=== PATIENT | female | born 1975 | race Two or more races ===

== ENCOUNTER 2021-06-14 12:34 | Emergency (ER) | payer SELFPAY ==
[~2021-06-14] VITALS: Ht 154.9 cm; Wt 59.1 kg
--- NOTE | 2021-06-14 13:37 | PHYS DOC ---
General Adult EDM: Chief Complaint: HEADACHE HPI: HPI: Patient is a 46 year old female who presents with 2 days of a right-sided headache. She states she has had these current headaches before but not this bad. 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 She denies only photophobia but no new eye vision change. She does have nausea and has vomited. She was not eating yesterday due to the headache and nausea and daughter states that she was sitting behind the wheel of her car and had a syncopal episode where she hit her head on the steering well. She now also has right neck pain. She denies any focal weakness, numbness or tingling, abdominal pain, chest pain, shortness of air, new vision change, fever that she knows of, cough. Patient rates her pain a 10 out of 10. She has not taken any pain medication for her headache. Review of Systems: Review of Systems: Constitutional: Denies fever or +chills. [] Eyes: Denies change in visual acuity. [] HENT: Denies nasal congestion or sore throat. [] Respiratory: Denies cough or shortness of breath. [] Cardiovascular: Denies chest pain or edema. [] GI: Denies abdominal pain, +nausea, +vomiting, denies bloody stools or diarrhea. [] : Denies dysuria. [] Musculoskeletal: Denies back pain or joint pain. [] Integument: Denies rash. [] Neurologic: + headache, denies focal weakness or sensory changes. +Syncope[] Endocrine: Denies polyuria or polydipsia. [] Lymphatic: Denies swollen glands. [] Psychiatric: Denies depression or anxiety. [] Heart Score: C/O Chest Pain: No Physical Exam: PE: Constitutional: Well developed, well nourished, no acute distress, non-toxic appearance. [] HENT: Normocephalic, atraumatic, bilateral external ears normal, oropharynx moist, no oral exudates, nose normal. [] Eyes: PERRLA, EOMI, conjunctiva normal, no discharge. Photophobia. 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 [] Cardiovascular:Heart rate regular rhythm, no murmur [] Lungs & Thorax: Bilateral breath sounds clear to auscultation [] Abdomen: Bowel sounds normal, soft, no tenderness, no masses, no pulsatile masses. [] Skin: Warm, dry, no erythema, no rash. [] Back: No tenderness, no CVA tenderness. [] Extremities: No tenderness, no cyanosis, no clubbing, ROM intact, no edema. [] Neurologic: Alert and oriented X 3, normal motor function, normal sensory function, no focal deficits noted. [] Psychologic: Affect normal, judgement normal, mood normal. [] EKG: EK and read by Dr. Shaw is sinus rhythm and no STEMI Radiology/Procedures: Radiology/Procedures: [] Impression: [facility] [address] [place], [place] [id number] IMAGING REPORT Signed PATIENT: JAREN MCKEONCOUNT: [id number] : 1975 LOCATION: ER AGE: 46 SEX: F EXAM STATUS: REG ER ORD. PHYSICIAN: LARA PHILLIPS APRN REASON: syncope hit head, neck pain PROCEDURE: CT HEAD AND CERVICAL SPINE WO STUDY: CT head and cervical spine without contrast INDICATION: Syncope. Trauma to the head. Neck pain. COMPARISON: None. TECHNIQUE: Axial CT imaging through the head and cervical spine without the use of intravenous contrast. Sagittal and coronal reformats were obtained. One or more of the following individualized dose reduction techniques were utilized for this examination: 1. Automated exposure control 2. Adjustment of the mA and/or kV according to patient size 3. Use of iterative reconstruction technique. FINDINGS: CT head: No acute intracranial hemorrhage. Davidson-white matter differentiation is maintained. No mass effect, midline shift or hydrocephalus. Possible mild right paramidline scalp contusion, image 16 series 2. No depressed calvarial fracture. CT cervical spine: No acute fracture. Alignment is within normal limits. Disc osteophyte complex or medication at C5-C6 more so than C6-C7 and C4-C5. Uncovertebral joint hypertrophy greatest at C5-C6. No advanced facet arthrosis. There is central canal stenosis at C5-C6 which is incompletely characterized but does not appear to be severe. Osseous neural foraminal stenosis greatest on the right at C5-C6. Unremarkable thyroid and lung apices. No paraspinous hematoma. IMPRESSION: CT head: 1. No depressed calvarial fracture or acute intracranial hemorrhage. CT cervical spine: 1. No acute fracture or traumatic malalignment. 2. Multilevel degenerative changes, as described above, collectively greatest at C5-C6. Electronically signed by: BRYANT MAX MD (06/14/2021 2:43 PM) [facility] DICTATED and SIGNED BY: BRYANT MAX MD DATE: 06/14/21 [id number] 0 [facility] [address] [place] [address] IMAGING REPORT Signed PATIENT: JAREN MCKOENCOUNT: [id number] : 1975 LOCATION: ER AGE: 46 SEX: F EXAM STATUS: PRE ER ORD. PHYSICIAN: LARA PHILLIPS APRN REASON: syncope PROCEDURE: PORTABLE CHEST 1V Study: XR CHEST 1V Indication: Syncope. Comparison: None. Findings: The cardiomediastinal silhouette and chantel are within normal limits. No localized airspace opacity, pleural effusion or pneumothorax. Impression: No acute radiographic abnormality of the chest. Electronically signed by: BRYANT MAX MD (06/14/2021 2:24 PM) [facility] DICTATED and SIGNED BY: BRYANT MAX MD DATE: 06/14/21 [id number] 0 Course & Med Decision Making: Course & Med Decision Making Pertinent Labs and Imaging studies reviewed. (See chart for details) See HPI. Alert and oriented x4. [place]an-speaking only. Produce Assistant is used. Speaks in full complete sentences. Moving all extremities. Nose finger nose intact. Sensations intact. Cap refill less than 2 seconds. No extremity swelling. No focal bony spinal tenderness. She does have full range of motion of her neck. Photophobia. Afebrile. Lungs are clear to all station all lobes. No nuchal rigidity. Patient is given Benadryl, Compazine, Decadron, fentanyl. 1620: Patient states that her pain is still there and it had gotten better but is worse again. Patient is now given Toradol and Sumatriptan. She is currently being PO challenged. 1700. Patient tolerated p.o. challenge. Patient states her pain is a 4 out of 10. She is resting comfortably. Patient will sent home with pain medication [] Dragon Disclaimer: Dragon Disclaimer: This electronic medical record was generated, in whole or in part, using a voice recognition dictation system. NIHSS Stroke Scale NIH Stroke Scale: NIH Stroke Scale Response (Comments) Value Level of Consciousness: 0 Alert/Responsive 0 LOC Questions: 0 Answers both correctly 0 LOC Commands: 0 Performs both tasks 0 Best Gaze: 0 Normal 0 Facial Palsy: 1 Minor paralysis (CHRONIC BLINDNESS IN RIGHT EYE, GLAUCOMA) 1 Motor - Left Arm 0 No drift 0 Motor - Right Arm 0 No drift 0 Motor - Left Leg 0 No drift 0 Motor: Right Leg 0 No drift 0 Limb Ataxia: 0 Absent 0 Sensory: 0 No loss 0 Best Language: 0 Normal 0 Dysathria: 0 Normal 0 Extinction and Inattention: 0 Normal 0 Total 1 Departure Departure Impression: Primary Impression: Headache Qualified Codes: R51.9 - Headache, unspecified Additional Impression: UTI (urinary tract infection) Qualified Codes: N30.00 - Acute cystitis without hematuria Disposition: HOME / SELF CARE / HOMELESS Condition: STABLE Patient Instructions: General Headache Without Cause, Urinary Tract Infection Additional Instructions: Follow-up with primary care provider soon as possible. Drink plenty of fluids to stay hydrated. Take medication as prescribed and with food. If your condition worsens and your headache becomes more severe or you cannot keep down fluids or you begin running a fever or having neck stiffness or numbness and tingling you need to go to the emergency room. Scripts Cephalexin (KEFLEX) 500 Mg Capsule 1 CAP PO TID, #21 CAP Prov: LARA PHILLIPS APRN 06/14/21 Ibuprofen (IBUPROFEN) 600 Mg Tablet 600 MG PO PRN Q6HRS PRN for INFLAMMATION, #20 TAB Prov: LARA PHILLIPS APRN 06/14/21 Ondansetron (ONDANSETRON ODT) 4 Mg Tab.rapdis 1 TAB PO PRN Q6-8HRS, #16 TAB Prov: LARA PHILLIPS APRN 06/14/21 LARA PHILLIPS APRN Jun 14, 2021 13:37
[2021-06-14] MEDS ORDERED: diphenhydrAMINE 50 MG/ML VIAL IVP ONE (13:45)
[2021-06-14] MEDS ORDERED: IV NORMAL SALINE 1000ML BAG 1,000 ML IV ONE (13:45)
[2021-06-14] MEDS ORDERED: fentaNYL PF VIAL 100 MCG/2 ML VIAL IVP ONE (13:45)
[2021-06-14] MEDS ORDERED: DEXAMETHASONE SOD PHOS 20 MG/5 ML VIAL. IV ONE (13:45)
[2021-06-14] MEDS ORDERED: PROCHLORPERAZINE 10 MG/2 ML VIAL. IV ONE (13:45)
[2021-06-14 13:53] LABS: BASO % 0 % (0-3); EOS # 0.2 x10^3/uL (0.0-0.7); EOS % 1 % (0-3); HEMATOCRIT 43.6 % (36.0-47.0); HEMOGLOBIN 14.7 g/dL (12.0-15.5); LYMPH # 2.9 x10^3/uL (1.0-4.8); LYMPH % 20 % (24-48); MEAN CORPUSCULAR HEMOGLOBIN 28 pg (25-35); MEAN CORPUSCULAR HGB CONC 34 g/dL (31-37); MEAN CORPUSCULAR VOLUME 84 fL (79-100); MONO # 0.7 x10^3/uL (0.0-1.1); MONO % 5 % (0-9); NEUT # 10.6 x10^3/uL (1.8-7.7); NEUT % 74 % (31-73); PLATELET COUNT 381 x10^3/uL (140-400); RED BLOOD COUNT 5.21 x10^6/uL (3.50-5.40); RED CELL DISTRIBUTION WIDTH 14.1 % (11.5-14.5); WHITE BLOOD COUNT 14.4 x10^3/uL (4.0-11.0)
[2021-06-14 14:06] LABS: CALCIUM 9.4 mg/dL (8.5-10.1); CREATININE 0.8 mg/dL (0.6-1.0); GFR 76.6; POTASSIUM 3.7 mmol/L (3.5-5.1)
[2021-06-14 14:12] LABS: ALBUMIN 3.8 g/dL (3.4-5.0); ALBUMIN/GLOBULIN RATIO 0.7 (1.0-1.7); MAGNESIUM 2.2 mg/dL (1.8-2.4); TOTAL BILIRUBIN 0.5 mg/dL (0.2-1.0)
--- NOTE | 2021-06-14 14:26 | RAD ---
Study: XR CHEST 1V Indication: Syncope. Comparison: None. Findings: The cardiomediastinal silhouette and chantel are within normal limits. No localized airspace opacity, pl eural effusion or pneumothorax. Impression: No acute radiographic abnormality of the chest. Electronically signed by: BRYANT MAX MD (06/14/2021 2:24 PM) [facility]
--- NOTE | 2021-06-14 14:46 | RAD ---
STUDY: CT head and cervical spine without contrast INDICATION: Syncope. Trauma to the head. Neck pain. COMPARISON: None. TECHNIQUE: Axial CT imaging through the head and cervical spine without the use of intravenous contra st. Sagittal and coronal reformats were obtained. One or more of the following individualized dose reduction techniques were utilized for this examinat ion: 1. Automated exposure control 2. Adjustment of the mA and/or kV according to patient size 3. Use of iterative reconstruction technique. FINDINGS: CT head: No acute intracranial hemorrhage. Davidson-white matter differentiation is maintained. No mass effect, mi dline shift or hydrocephalus. Possible mild right paramidline scalp contusion, image 16 series 2. No depressed calvarial fracture. CT cervical spine: No acute fracture. Alignment is within normal limits. Disc osteophyte complex or medication at C5-C6 more so than C6-C7 and C4-C5. Uncovertebral joint hype rtrophy greatest at C5-C6. No advanced facet arthrosis. There is central canal stenosis at C5-C6 whic h is incompletely characterized but does not appear to be severe. Osseous neural foraminal stenosis g reatest on the right at C5-C6. Unremarkable thyroid and lung apices. No paraspinous hematoma. IMPRESSION: CT head: 1. No depressed calvarial fracture or acute intracranial hemorrhage. CT cervical spine: 1. No acute fracture or traumatic malalignment. 2. Multilevel degenerative changes, as described above, collectively greatest at C5-C6. Electronically signed by: BRYANT MAX MD (06/14/2021 2:43 PM) [facility]
--- NOTE | 2021-06-14 15:01 | EKG ---
[facility] [address] [place] [address] Test Date: 2021-06-14 Test Time: 13:50:17 Pat Name: JACKIE MCKEON Department: Room: Gender: F Broke Beater: : 1975 Requested By: LARA PHILLIPS Order Number: [id number] Reading MD: Malachi Valencia MD Measurements Intervals [place] Rate: 79 P: 31 IN: 142 QRS: 31 QRSD: 82 T: 39 QT: 368 QTc: 423 Interpretive Statements SINUS RHYTHM NON-SPECIFIC ST/T CHANGES Electronically Signed On 06-15-2021 13:27:32 [employer]ORY PROFESSOR by Malachi Valencia MD
[2021-06-14 15:57] LABS: BILIRUBIN,URINE NEGATIVE (NEG); CLARITY,URINE CLOUDY; COLOR,URINE YELLOW; NITRITE,URINE NEGATIVE (NEG); PROTEIN,URINE NEGATIVE (NEG-TRACE)
[2021-06-14 16:03] LABS: BARBITURATES NEG (NEG); BENZODIAZEPINES NEG (NEG); CANNABINOIDS NEG (NEG); COCAINE NEG (NEG); METHADONE NEG (NEG); OPIATES NEG (NEG); PHENCYCLIDINE NEG (NEG)
[2021-06-14 16:06] LABS: BACTERIA,URINE MANY /HPF (0-FEW); RBC,URINE OCC /HPF (0-2)
[2021-06-14 16:07] LABS: AMPHETAMINE/METHAMPHETAMINE NEG (NEG)
[2021-06-14] MEDS ORDERED: KETOROLAC 30 MG/ML VIAL. IVP ONE (16:30)
[2021-06-14] MEDS ORDERED: cefTRIAXone IV Push 1 GM VIAL. IVP ONE (16:30)
[2021-06-14] MEDS ORDERED: SUMAtriptan SUCC 6 MG/0.5 ML VIAL. SQ ONE (16:30)
[2021-06-14] MEDS ORDERED: CEPH500C PO (17:22)
[2021-06-14] MEDS ORDERED: ONDA4TAB12 PO (17:22)
[2021-06-14] MEDS ORDERED: IBUP-1007 PO (17:22)
[2021-06-14 17:48] VITALS: BP 122/67
--- NOTE | 2021-06-15 15:12 | NUR ---
IP: Informed pt of negative covid test. Pt verbalized understanding.
== END 2021-06-14 18:30 | disposition home or self-care (01) ==
LOC: ER 12:34
DX: R51.9 Headache, unspecified (principal); Z20.822 Contact with and (suspected) exposure to COVID-19; N30.00 Acute cystitis without hematuria; G89.11 Acute pain due to trauma; M54.2 Cervicalgia; R55 Syncope and collapse; H54.61 Unqualified visual loss, right eye, normal vision left eye; M48.02 Spinal stenosis, cervical region; W22.8XXA Striking against or struck by other objects, initial encounter; Y93.89 Activity, other specified; Y92.89 Other specified places as the place of occurrence of the external cause; Y99.8 Other external cause status
CPT/HCPCS: 36415; 70450; 71045; 72125; 80053; 80307; 81001; 83735; 83880; 84484; 85025; 87086; 87426; 93005; 96361; 96372; 96374; 96375; 99285; J0696; J0780; J1100; J1200; J1885; J3010; J3030; J7030; U0003; U0005